=== PATIENT | female | born 1980 | race Two or more races ===

== ENCOUNTER 2024-06-25 09:46 | Emergency (ER) | payer BC, MEDICAID, SELFPAY ==
[2024-06-25 09:52] VITALS: BP 127/82; PULSE 75; RESP 16; TEMP 36.8; O2SAT 97; BMI 40.0
--- NOTE | 2024-06-25 10:00 | XR_ITS ---
Examination: CT abdomen and pelvis without contrast. Coronal 3-D reconstructions. Sagittal 2-D reconstructions. Date and time of exam:June 25, 2024 1022 hours Comparison August 09, 2022 CTDI: vol (mGy): 12.4 DLP: (mGycm): 708 Technique: Axial images of the abdomen have been obtained, 3 mm slice thickness Intravenous contrast material has not been administered. Low dose protocols were performed. One or more of the following dose reduction techniques were used; automated exposure control, adjustment of the mA and/or KV according to patient size, use of iterative reconstruction technique. Findings: No focal liver or splenic lesion Absent gallbladder No extra hepatic biliary tract dilatation No pancreatic or adrenal mass No renal or ureteral calculi, no hydronephrosis Aorta normal size Normal appendix 12 mm fat-containing umbilical hernia No bowel obstruction Scattered colonic diverticulosis Anteverted uterus Urinary bladder intact L5-S1 2 mm central lumbar disc bulge IMPRESSION: No renal or ureteral calculi, no hydronephrosis Normal appendix No bowel obstruction diverticulitis or free air
--- NOTE | 2024-06-25 10:00 | EKG_ITS ---
[facility] Test Date: 2024-06-25 Pat Name: CAMILO BULLOCK Department: Room: - Gender: Female [employer]: : 1980 Requested By: Edgar Crenshaw (SALINAS) Order Number: [id number] Reading MD: Edgar Crenshaw (BUSINESS PROCESS ASSOCIATE) Measurements Intervals [place] Rate: 70 P: 1 W[place]: 130 QRS: 38 QRSD: 86 T: 28 QT: 380 QTc: 411 Interpretive Statements SINUS RHYTHM LOW QRS VOLTAGE IN PRECORDIAL LEADS [QRS DEFLECTION < 1.0 mV IN CHEST LEADS] No previous ECG available for comparison /store/[email or web address]/[id number].pdf
[2024-06-25 10:40] LABS: Basophils % (Auto) 1 % (0-2.5); Eosinophils # (Auto) 0.1 Thou/mm3 (0.0-0.5); Eosinophils % (Auto) 1 % (0-10); Hematocrit 39.7 % (36.0-46.0); Hemoglobin 12.8 g/dL (12.0-16.0); Immature Granulocytes % (Auto) 0 % (0-0); Immature Granulocytes Auto 0.01 Thou/mm3 (0.00-0.00); Lymphocytes % (Auto) 31 % (10-50); Mean Corpuscular HGB Conc 32.2 g/dl (31.0-37.0); Mean Corpuscular Hemoglobin 27.5 pg (25.0-35.0); Mean Corpuscular Volume 85 fL (80-100); Monocytes # (Auto) 0.5 Thou/mm3 (0.0-0.8); Monocytes % (Auto) 8 % (0-12); Neutrophils # (Auto) 3.8 Thou/mm3 (1.8-7.7); Neutrophils % (Auto) 59 % (37-80); Nucleated Red Blood Cell % 0 /100 WBC (0); Platelet Count 240 Thou/mm3 (140-440); RDW Standard Deviation 45.1 fL (36.4-46.3); Red Blood Count 4.66 Miln/mm3 (4.00-5.20); White Blood Count 6.5 Thou/mm3 (3.6-11.0)
[2024-06-25 11:04] LABS: Alanine Aminotransferase 21 U/L (10-49); Albumin, Serum 4.4 gm/dL (3.5-5.0); Albumin/Globulin Ratio 1.7 (1.2-2.2); Alkaline Phosphatase 80 U/L (46-116); Anion Gap 6 (7-16); Aspartate Amino Transferase 15 U/L (0-34); BUN/Creatinine Ratio 18 Ratio (12-20); Bilirubin,Total 0.5 mg/dL (0.3-1.2); Blood Urea Nitrogen 11 mg/dL (9-23); Calcium 8.5 mg/dL (8.3-10.6); Calcium (Corrected) 8.5 mg/dL (8.5-10.1); Carbon Dioxide 25.4 mMol/L (20.0-31.0); Chloride 110 mMol/L (98-107); Creatinine (Component) 0.6 mg/dL (0.6-1.3); Estimated Creatinine Clearance 129.5 mL/min (>60); Globulin 2.6 gm/dL (2.3-3.5); Glucose 129 mg/dL (74-106); Lipase 30 U/L (12-53); Osmolality,Calculated 282 (275-295); Potassium 4.5 mMol/L (3.4-5.1); Sodium 141 mMol/L (136-145); Troponin I < 0.002 ng/mL (0.0-0.045); eGFR > 60 See Note
[2024-06-25 11:33] LABS: Collection Type, Urine Clean Catch
[2024-06-25 11:59] LABS: Bacteria,Urine 1+; Bilirubin,Urine Negative (Negative); Blood,Urine Negative (Negative); Clarity,Urine Hazy (Clear/Hazy); Color,Urine Lt-Yellow (Lt Yel-Yel); Culture Indicated,Urine Yes; Glucose, Urine 4+ (Negative); Ketones,Urine Negative (Negative); Leukocyte Esterase,Urine Positive (Negative); Nitrite,Urine Negative (Negative); PH,Urine 7.5 (5.0-7.0); Protein,Urine Negative (Neg - Trace); RBC,Urine 4 /hpf (0-3); Specific Gravity,Urine 1.043 (1.001-1.035); Squamous Epithelial Cell,Urine 4 /hpf (0-5); Urobilinogen,Urine Negative mg/dL (0.0-1.0); WBC,Urine 24 /hpf (0-5)
--- NOTE | 2024-06-25 12:11 | EDNOTE_ITS ---
ED Abdominal Pain RME/HPI General Chief Complaint: Abdominal Pain Stated complaint: LUQ ABD PAIN Time seen by provider: 06/25/24 10:00 Arrival date/time: 06/25/24 09:46 44-year-old female presents emergency department today for complaints of upper abdominal pain ongoing for last couple of days patient reports no fever no vomiting. Limitations: no limitations Related Data Previous Rx's ?Medication ?Instructions ?Recorded ciprofloxacin HCl 500 mg tablet 500 mg PO BID 7 days # 14 tabs 06/25/24 metoclopramide HCl 10 mg tablet 10 mg PO Q6H PRN nause a and 06/25/24 (Reglan) vomiting #30 tabs Allergies Allergy/AdvReac Type Severity Reaction Status Date / Time NKA* Allergy Uncoded 06/25/24 09:49 Review of Systems Review of Systems Systems Reviewed: All systems reviewed, normal except as documented Constitutional Constitutional: Reports system reviewed and no additional complaints, except as documented, Denies fever(s) and Denies headache(s) Eyes Eyes: Reports system reviewed and no additional complaints, except as documented and Denies blurry vision ENT Ears, Nose, Mouth, and Throat: Reports system reviewed and no additional complaints, except as documented, Denies headache(s), Denies nasal congestion and Denies nasal discharge Cardiovascular Cardiovascular: Reports system reviewed and no additional complaints, except as documented, Denies chest pain and Denies dyspnea Respiratory Respiratory: Reports system reviewed and no additional complaints, except as documented, Denies chest congestion, Denies cough and Denies dyspnea Gastrointestinal Gastrointestinal: Reports system reviewed and no additional complaints, except as documented, Reports abdominal pain, Reports nausea and Denies vomiting Integumentary/Breasts Skin/Breast: Reports system reviewed and no additional complaints, except as documented and Denies rash Neurologic Neurologic: Reports system reviewed and no additional complaints, except as documented, Reports as per HPI and Denies headache(s) Past Medical History Past Medical History CARDIAC: Negative Congestive Heart Failure RESPIRATORY: Negative Chronic Obstructive Pulmonary Disease (COPD) GENITOURINARY: Negative Renal Disease ENDOCRINE: Negative Diabetes Mellitus Type 1 or Diabetes Mellitus Type 2 Social History SMOKING STATUS: Never smoker ED Exam General Limitations: Present no limitations General appearance: Present alert and in no apparent distress Head Head exam: Present atraumatic, normocephalic and normal inspection Eye Eye exam: Present normal appearance, PERRL and EOMI; Absent conjunctival injection ENT ENT exam: Present normal exam, normal oropharynx and mucous membranes moist Neck Neck exam: Present normal inspection, full ROM and trachea midline Chest Chest inspection: Present normal inspection and symmetric chest wall rise Respiratory Respiratory exam: Present normal lung sounds bilaterally Cardiovascular Cardiovascular exam: Present regular rate, normal rhythm and normal heart sounds Abdominal Exam Abdominal exam: Present soft, tenderness and normal bowel sounds; Absent distention, guarding, rebound, rigidity, Lynn's sign, Rovsing's sign or tenderness at McBurney's Point Abdominal tenderness: Present LUQ; Absent RUQ, RLQ, LLQ or epigastrium Extremities Exam Extremities exam: Present normal inspection and full ROM Back Exam Back exam: Present normal inspection and full ROM Neurological Exam Neurological exam: Present alert, oriented X3 and CN II-XII intact Psychiatric Psychiatric exam: Present normal affect and normal mood Skin Skin exam: Present warm, dry, intact and normal color Course Quality Measures none Orders Category Date Time Status EKG (ED ONLY) *Do not use* NOW Care 06/25/24 10:[address] abdomen pelvis wo con Stat Exams 06/25/24 10:00 Completed EKG (ED Only) Stat Exams 06/25/24 10:00 Draft CBC Stat Lab 06/25/24 10:30 Completed Comprehensive Metabolic Panel Stat Lab 06/25/24 10:30 Completed Lipase Stat Lab 06/25/24 10:30 Completed Troponin I Stat Lab 06/25/24 10:30 Completed UA, C/S IF [Urinalysis, C/S if Indicated] Stat Lab 06/25/24 10:46 Completed Urine Culture Stat Lab 06/25/24 10:46 Completed Acetaminophen Tab [Tylenol ES Tab] Med 06/25/24 10:00 Discontinued 1,000 mg PO X1 ONE Metoclopramide Inj [Reglan Inj] Med 06/25/24 10:00 Discontinued 10 mg IM X1 ONE Vital Signs Vital signs: Vital Signs Temperature 98.2 F 06/25/24 09:52 Pulse Rate 75 06/25/24 09:52 Respiratory Rate 16 06/25/24 09:52 Blood Pressure 127/82 06/25/24 09:52 Pulse Oximetry (%) 97 06/25/24 09:52 Oxygen Delivery Method Room Air 06/25/24 09:52 O2 saturation 97% r/a wnl Abdominal Pain MDM MDM Narrative MDM Narrative:: 44-year-old female presents emergency department today for complaints of upper abdominal pain ongoing for last couple of days patient reports no fever no vomiting. Lab work and imaging obtained no acute emergent findings noted Patient medicated here which improved her symptoms Urinalysis consistent with UTI patient will be treated Patient discharged home in no distress to follow-up with primary care doctor in the next 24 to 48 hours and for any worsening symptoms to return to the ER immediately Patient data External records reviewed:: [facility] previous records Clinical information provided by:: patient Social determinants that could affect healthcare access:: none Patient has the following chronic illnesses:: None How is presenting disease/condition affected by chronic disease/condition?: no chronic disease Evaluation data The following diagnostics were reviewed and interpreted by me:: radiology exam(s) Lab and/or radiology exams considered but not ordered:: Radiology obtain Interpretation Summary: Reviewed by me Medications / Prescriptions Medications or Prescriptions considered but not ordered:: Given Medication administrations:: Medication Administration History Discontinued Medications Acetaminophen (Acetaminophen 500 Mg Tablet) 1,000 mg PO X1 ONE Stop: 06/25/24 10:01 Last Admin: 06/25/24 12:17 Dose: 1,000 mg Documented By: REJI Metoclopramide HCl (Metoclopramide Inj 5 Mg/Ml Vial 2 Ml) 10 mg IM X1 ONE; Protocol Stop: 06/25/24 10:01 Last Admin: 06/25/24 12:18 Dose: 10 mg Documented By: REJI Given Consultations Consultation(s) initiated? (list below): No Diagnosis Differential diagnosis abdominal pain: abdominal pain, acute appendicitis, pancreatitis, small bowel obstruction and other (Foot pain) Most likely diagnosis given after review of the tests above:: Abdominal pain Admission Indicated Admission indicated?: not indicated Admission Request Was there a request for admission?: No Disposition Plan Disposition Plan: Discharge Discharge Attestation Discharge Attestation: The patient and all family members were given an opportunity to ask questions and understood the discharge instructions. Discharge instructions specifically effects, indications for sooner follow up or return to the emergency department, and the expected course of current diagnosis. Patient condition: Stable Discharge Plan Plan Patient Disposition: HOME (Self Care) Discharge Disposition comment: Stable Prescriptions/Referrals Prescriptions/Med Rec: New ciprofloxacin HCl 500 mg tablet 500 mg PO BID 7 Days Qty: 14 0RF metoclopramide HCl [Reglan] 10 mg tablet 10 mg PO Q6H PRN (Reason: nausea and vomiting) Qty: 30 0RF Referrals: Philip Amato [Primary Care Provider] - 06/27/24 Problem List Clinical Impression: UTI (urinary tract infection), Abdominal pain Patient/Caregiver Discharge Instructions Education Materials: Abdominal Pain Additional Instructions: Please follow up with your primary care doctor in the next 24-48hrs for any worsening symptoms return here immediately Print Language: Georgian Stand Alone Forms: [employer] Award Info., Work/School Release, Patient Portal Info Letter PA/SAFETY PERSON Supervising Physician PA/SAFETY PERSON Supervising Physician: Dr. souza
[2024-06-25] MEDS: ACETAMINOPHEN 500 MG TABLET 1000 MG PO (12:17)
[2024-06-25] MEDS: METOCLOPRAMIDE INJ 5 MG/ML VIAL 2 ML 10 MG IM (12:18)
[2024-06-25 12:26] VITALS: BP 119/79; PULSE 60; RESP 19; TEMP 36.4; O2SAT 98
== END 2024-06-25 12:46 | disposition home or self-care (01) ==
PROVIDERS: Nurse Practitioner Primary Care; Emergency Provider Family Medicine; PCP Internal Medicine
DX: N39.0 Urinary tract infection, site not specified (principal); R10.12 Left upper quadrant pain; R94.31 Abnormal electrocardiogram [ECG] [EKG]
CPT/HCPCS: 36415; 74176; 80053; 81001; 83690; 84484; 85025; 87077; 87086; 87186; 93005; 96372; 99284; J2765; A9270